=== PATIENT | female | born 1975 | race Caucasian/White ===

== ENCOUNTER 2020-09-12 20:34 | Emergency (ER) | payer BC, SELFPAY ==
[2020-09-12 20:47] VITALS: BP 143/67; PULSE 116; RESP 18; TEMP 36.6; O2SAT 100; BMI 31.8
--- NOTE | 2020-09-12 20:53 | PC.NURSE ---
Small amount of bleeding in triage. Pressure dressing applied to finger.
--- NOTE | 2020-09-12 20:56 | DI.RAD.S_ITS ---
PROCEDURE: XR FINGER LT MIN 2V INDICATIONS: laceration on left second digit TECHNIQUE: AP hand, 2 views of the left 2nd finger(s) acquired. COMPARISON: None. FINDINGS: Bones: No fractures or dislocations. No suspicious bony lesions. Soft tissues: No suspicious soft tissue calcifications. No radiodense foreign bodies. IMPRESSION: 1. No foreign bodies or fractures of the 2nd digit. Dictated by: Melvina Mascorro M.D. on 09/12/2020 at 21:17 Approved by: Melvina Mascorro M.D. on 09/12/2020 at 21:18
[2020-09-12 23:34] VITALS: BP 119/77; PULSE 101; RESP 20; TEMP 36.6; O2SAT 97
[2020-09-13] MEDS: TET,DIPH,PERTUSS(ACELL),VAC/PF 0.5 ML SYRINGE IM (00:21)
[2020-09-13] MEDS: LIDO 1%/SOD BICARB 8.4% (10ML) 10 ML SYRINGE INJ (00:22)
--- NOTE | 2020-09-13 01:09 | ED_ITS ---
HPI - Wound/Laceration General Chief Complaint: Wound/Laceration Stated Complaint: cut finger on left side Time Seen by Provider: 09/12/20 23:42 Source: patient Mode of arrival: Ambulatory History of Present Illness HPI narrative: Otherwise healthy 44-year-old woman cut her index finger, left side, while cutting vegetables with a clean kitchen knife. The bleeding has slowed, she did clean the wound thoroughly at home. An x-ray is done as the wound self was felt to be fairly deep. She is neurovascularly intact passed the wound. Related Data Allergies Allergy/AdvReac Type Severity Reaction Status Date / Time No Known Drug Allergies Allergy Verified 09/12/20 20:51 Review of Systems Review of Systems Narrative: Pertinent positive and negative findings as per HPI Remainder of review of systems is otherwise unremarkable for Constitutional: Fevers, chills, weakness ENT: No sore throat, neck pain, ear pain CV: Chest pain, palpitations, Respiratory: Cough, wheeze, dyspnea GI: Nausea, vomiting, diarrhea, Patient History Social History Smoking Status: Never smoker Smoking Status: Never smoker alcohol intake frequency: 0-2 drinks per day Substance Use Type: does not use Exam Narrative Exam Narrative: General: Alert appropriate in no acute distress Respiratory: Able to speak in full sentences, no obvious respiratory distress Skin: No obvious rashes, warm and dry Neurologic: Grossly intact no obvious asymmetries or abnormalities Psych: appropriate insight and affect, cooperative Extremity: Left index finger with 2.5 cm flap-like laceration to the and to the finger in between the D IP joints. Not involving the nail bed. Deep structures are intact. She has full sensation to the tip of the finger prior to anesthetizing the area Initial Vital Signs Initial Vital Signs: Vital Signs Temperature 97.8 F 09/12/20 20:47 Pulse Rate 116 H 09/12/20 20:47 Respiratory Rate 18 09/12/20 20:47 Blood Pressure 143/67 H 09/12/20 20:47 Pulse Oximetry 100 09/12/20 20:47 Procedures Laceration Repair Laceration 1: Time of procedure: 01:13 Site: hand (L index finger) Size (cm): 2.5 Description: linear and flap Depth: simple, single layer Local Anesthetic: lidocaine 1% and with bicarb Amount of anesthesia used (mL): 2 Pre-repair: wound explored and deep structures intact Skin layer closed with: nylon Size (cm): 4-0 Number of sutures: 4 Technique: simple, interrupted Course Orders Ordered: ED Orders 09/12/20 20:56 XR finger LT min 2V Stat Discontinued Medications Diphtheria/Tetanus/Acell Pertussis (Tet,Diph,Pertuss(Acell),Vac/Pf 0.5 Ml Syringe) 0.5 ml IM .ONCE ONE Stop: 09/12/20 23:51 Last Admin: 09/13/20 00:21 Dose: 0.5 ml Documented by: SHELLIE Lidocaine/Sodium Bicarbonate (Lido 1%/Sod Bicarb 8.4% (10ml) 10 Ml Syringe) 10 ml INJ NOW ONE Stop: 09/12/20 23:51 Last Admin: 09/13/20 00:22 Dose: 10 ml Documented by: SHELLIE Vital Signs Vital signs: Vital Signs - 8 hr 09/12/20 20:47 09/12/20 23:34 Temperature 97.8 F 98 F Pulse Rate 116 H 101 H Respiratory Rate 18 20 Blood Pressure 143/67 H 119/77 Pulse Oximetry 100 97 MDM - Wound/Laceration Imaging Data X-ray finger: Radiologist's Impression: FINDINGS: Bones: No fractures or dislocations. No suspicious bony lesions. Soft tissues: No suspicious soft tissue calcifications. No radiodense foreign bodies. IMPRESSION: 1. No foreign bodies or fractures of the 2nd digit. Dictated by: Melvina Mascorro M.D. on 09/12/2020 at 21:17 MDM Narrative Medical decision making narrative: 44-year-old woman with laceration to left index finger. X-ray is unremarkable. Simple sutures were placed without complication. She tolerated procedure well. No evidence of infection at this time. Tetanus status is updated. She is safe for home discharge Discharge Plan Departure Patient Disposition: Home Clinical Impression: Laceration Instructions: DI for Minor Laceration Activity Restrictions/Additional Instructions: Thank you for coming in today Your wound was sutured without difficulty. If you notice increasing redness, pain, drainage or swelling to the finger of the hand you do need to have a re- evaluated The sutures need to be removed on or about September 20 I hope you heal quickly
[2020-09-13 02:02] VITALS: BP 104/61; PULSE 105; RESP 26; O2SAT 96
== END 2020-09-13 02:03 | disposition home or self-care (01) ==
PROVIDERS: Emergency Provider Emergency Medicine
DX: S61.211A Laceration without foreign body of left index finger without damage to nail, initial encounter (principal); W26.0XXA Contact with knife, initial encounter; Z23 Encounter for immunization
CPT/HCPCS: 12001; 73140; 90471; 99283; 99284; 90715